=== PATIENT | male | born 1950 ===

== ENCOUNTER 2017-10-02 08:31 | Outpatient (CLI) | payer MEDICARE, OTHER ==
--- NOTE | 2017-10-02 09:09 | XRay Report ---
Left knee: Knee pain. Periarticular spurs are identified involving the medial compartment and to a lesser extent the lateral compartment. There is significant narrowing of the medial joint compartment however the articular margins of both compartments appear smooth. There is normal alignment of the knee. The bones are well-mineralized. There is no effusion and no swelling identified. Impression: Degenerative knee changes. Significant medial compartment narrowing.
== END 2017-10-02 08:32 | disposition home or self-care (01) ==
LOC: SPVIMAG 08:31
PROVIDERS: ATTEND Orthopaedic Surgery Sports Medicine
DX: M17.12 Unilateral primary osteoarthritis, left knee (principal)